=== PATIENT | male | born 1995 | race African-American/Black ===

== ENCOUNTER 2016-05-23 18:37 | Emergency (ER) | payer SELFPAY ==
[~2016-05-23] VITALS: Ht 188 cm; Wt 74.0 kg
[~2016-05-23 18:37] MED LIST: VENTAER INH
[2016-05-23 18:39] VITALS: BP 132/70; PULSE 74; RESP 14; TEMP 97.7; O2SAT 98
--- NOTE | 2016-05-23 19:48 | PD ---
HPI Chief Complaint: Pain: Acute or Chronic Time Seen by Provider: 19:45 Travel History International Travel<30 days: No Contact w/Intl Traveler<30days: No Traveled to known affect area: No History of Present Illness HPI 20-year-old black male presents to emergency Department with complaints of sore throat for the past week. He states that he has had subjective fever and chills , ear pain, sore throat, lips swelling and tenderness, cough, congestion, and a rash on his hands. He denies any shortness of breath or wheezing. No nausea vomiting. No abdominal pain or diarrhea. No dysuria or frequency. History Past Medical Histgory Medical History: Denies Significant Hx Tetanus Vaccination: < 5 Years Past Surgical History Surgical History: No Previous Surgery Social History Alcohol Use: Yes (SOCIALLY) Tobacco Use: Yes (1/2PPD) Allergies-Medications (Allergen,Severity, Reaction): Coded Allergies: No Known Allergies (Unverified , 04/13/16) Reported Meds & Prescriptions Reported Meds & Active Scripts Active No Active Prescriptions or Reported Medications Review of Systems Except as stated in HPI: all other systems reviewed are Neg Physical Exam Narrative GENERAL: Well-developed, well-nourished in no apparent distress. Nontoxic appearing. HEAD: Normocephalic, atraumatic. EYES: Pupils equal round and reactive. Extraocular motions intact. No scleral icterus. No injection or drainage. ENT: Nose clear. Throat with mild erythema, but no tonsillar hypertrophy or exudate. Uvula midline. Airway patent. No change in phonation. Handling his secretions well. NECK: Trachea midline. Supple, nontender, moves head freely. No central bony tenderness or spasm. CARDIOVASCULAR: Regular rate and rhythm without murmurs, gallops, or rubs. RESPIRATORY: Clear to auscultation. Breath sounds equal bilaterally. No wheezes , rales, or rhonchi. GASTROINTESTINAL: Abdomen soft, non-tender, nondistended. No hepato-splenomegaly , or palpable masses. No guarding. EXTREMITIES: No clubbing, cyanosis, or edema. No joint tenderness. Patient bites his fingernails. BACK: Nontender without deformity. No flank tenderness. NEUROLOGICAL: Awake, alert and oriented x 3 .Cranial nerves grossly intact. Motor and sensory grossly within normal limits. Normal speech. Skin: I see no rashes or lesions. The skin is intact. Data Data Last Documented VS Vital Signs Date Time Temp Pulse Resp B/P Pulse Ox O2 Delivery O2 Flow Rate FiO2 05/23/16 19:11 16 05/23/16 18:39 97.7 74 132/70 98 MDM Medical Screen Exam Complete: Yes Emergency Medical Condition: No Differential Diagnosis MDM: High Differential diagnoses: Strep throat, viral pharyngitis, mono, peritonsillar abscess Narrative Course A medical screening exam was performed: At the time of evaluation the presenting medical condition was determined not to be of an emergent nature. The patient was given the option of receiving additional care, but declined. Patient was given options for additional community resources from which to obtain care. The Patient Has Been advised to seek medical attention for their presenting complaint. The patient has been advised to return to the ER at any time if an emergent condition develops. During the patient encounter the patient was seen and his significant other was in the examination room at the same time. The patient voiced no complaints of his care. His significant other also did not voice any complaints of his care. They appear to be happy with his evaluation and treatment up until they were notified that he was having a medical screening exam. After they were informed that the patient had to continue on with a medical screening process they then stated to the screener they felt I might care was inappropriate. At no time during the history and exam did the patient or the significant other appear to be unhappy with my care. I suspect that this is in response to the medical screening exam. Unfortunately this is a common problem that we see one patient' s are given a medical screening exam. They didn't make a good experience sound inappropriate because they were screened and that they would be responsible for the bill. Primary Impression: Encounter for medical screening examination Scripts No Active Prescriptions or Reported Meds Condition: Murtaza Resendiz May 23, 2016 19:48
== END 2016-05-23 20:19 | disposition left against medical advice (07) ==
LOC: NEPB 18:37
DX: J02.9 Acute pharyngitis, unspecified (principal); F17.210 Nicotine dependence, cigarettes, uncomplicated
CPT/HCPCS: 99281

== ENCOUNTER 2017-08-27 09:37 | Emergency (ER) | payer MEDICAID ==
[~2017-08-27] VITALS: Ht 185.4 cm; Wt 75.0 kg
[2017-08-27 09:39] VITALS: BP 119/61; PULSE 109; RESP 18; TEMP 98; O2SAT 99
--- NOTE | 2017-08-27 10:07 | PD ---
HPI . Shortness of breath Chief Complaint: Respiratory Symptoms Time Seen by Provider: 09:49 Travel History International Travel<30 days: No Contact w/Intl Traveler<30days: No Traveled to known affect area: No History of Present Illness HPI This patient presents with chief complaint of shortness of breath. Onset was about 6 or 7 this morning. He rates the severity of his dyspnea at 10/10. Symptoms have been continuous since 6 or 7 this morning. He also reports some left-sided chest pain. He denies fever or sputum production. He states that he has a history of asthma. He has not been under the care of a doctor for the last couple of years and does not have anything at home to use for asthma. He does state that he has been here intermittently in the last 2 years for asthma attacks. [facility] Past Medical History Asthma: Yes Diminished Hearing: No Respiratory: Yes (ASTHMA) Social History Alcohol Use: Yes (occ) Tobacco Use: Yes Substance Use: Yes (marijuana) Allergies-Medications (Allergen,Severity, Reaction): Coded Allergies: No Known Allergies (Unverified , 04/13/16) Reported Meds & Prescriptions Reported Meds & Active Scripts Active No Active Prescriptions or Reported Medications Review of Systems Except as stated in HPI: all other systems reviewed are Neg Physical Exam Narrative GENERAL: Awake and alert. He is noted to be very tremulous. SKIN: warm/dry. HEAD: Normocephalic. Atraumatic. EYES: Pupils equal and round. No scleral icterus. No injection or drainage. ENT: No nasal bleeding or discharge. Mucous membranes pink and moist. NECK: Trachea midline. Full range of motion without pain.. CARDIOVASCULAR: Regular rate and rhythm. Sinus tachycardia at about 110. RESPIRATORY: No accessory muscle use. Clear to auscultation. Breath sounds equal bilaterally. Respiratory rate is 18 with oxygen saturation of 99% on room air GASTROINTESTINAL: Abdomen soft. Nontender. Bowel sounds present. Nondistended. MUSCULOSKELETAL: No obvious deformities. NEUROLOGICAL: Awake and alert. No obvious cranial nerve deficits. Motor grossly within normal limits. Normal speech. PSYCHIATRIC: Appropriate mood and affect; insight and judgment normal. Data Data Last Documented VS Vital Signs Date Time Temp Pulse Resp B/P (MAP) Pulse Ox O2 Delivery O2 Flow Rate FiO2 08/27/17 09:56 109 17 100 Room Air 08/27/17 09:39 98.0 119/61 (80) Orders Orders Arterial Blood Gas (Abg) (08/27/17 ) Lorazepam Inj (Ativan Inj) (08/27/17 10:30) Guaifen-Cod 200-20 Mg/10ml Liq (Robituss (08/27/17 10:30) Labs Laboratory Tests Test 08/27/17 10:09 Blood Gas Puncture Site RT RADIAL Blood Gas Patient Temperature 98.6 Blood Gas HCO3 21 mmol/L Blood Gas Base Excess -1.8 mmol/L Blood Gas Oxygen Saturation 93 % Arterial Blood pH 7.46 Arterial Blood Partial Pressure CO2 30 mmHg Arterial Blood Partial Pressure O2 109 mmHG Arterial Blood Oxygen Content 17.1 Vol % Arterial Blood Carboxyhemoglobin 4.6 % Arterial Blood Methemoglobin 0.7 % Blood Gas Hemoglobin 12.9 G/DL Oxygen Delivery Device ROOM AIR Blood Gas Inspired Oxygen 21 % MDM Medical Decision Making Medical Screen Exam Complete: Yes Emergency Medical Condition: Yes Differential Diagnosis Differential diagnosis of dyspnea includes but is not limited to congestive heart failure, pneumonia, wheezing, pneumothorax, pulmonary embolism Narrative Course This patient presents with a chief complaint of dyspnea. He seems to think that he is having an asthma attack. However, his lungs are clear with good air movement throughout. His respiratory rate is 18 with an oxygen saturation 99% on room air. He is very tremulous. I believe that he is having an anxiety attack. I am going to start by checking a blood gas. If the blood gas shows evidence of hypoventilation but good oxygenation, I will treat him with Ativan. The diagnosis of a PE is being considered. Further evaluation of that will depend upon the results of the blood gas as well as response to therapy. His blood gas is compatible with hyperventilation. I have ordered Ativan. He does have a persistent, dry cough so I have also ordered a dose of Robitussin- AC. He will be reassessed following this treatment. On recheck, his breathing is better. He continues to have a cough. His significant other reports that she knows what is wrong with him. She states that he needs to stop smoking. I have told her that I agree with her. I will discharge the patient with prescriptions for Robitussin-AC and an albuterol inhaler. He will be admonished to stop smoking. Diagnosis Primary Impression: Shortness of breath Additional Impressions: Cough Hyperventilation Additional Instructions: Stop smoking Med/Other Pt SpecificInfo: Prescription(s) given Scripts Promethazine-Codeine Liq (Promethazine-Codeine Liq) 6.25-10 Mg/5 Ml Syrp 10 ML PO Q4H Y for COUGH AND/OR COLD SYMPTOMS, #120 ML 0 Refills Prov: Margarita Alas MD 08/27/17 Albuterol 18 GM Inh (Ventolin Hfa 18 GM Inh) 90 Mcg/Act Aer 2 PUFF INH Q4-6H Y for SHORTNESS OF BREATH, #1 INHALER 0 Refills Prov: Margarita Alas MD 08/27/17 Disposition: 01 DISCHARGE HOME Condition: Stable Margarita Alas MD August 27, 2017 10:07
[2017-08-27] MEDS ORDERED: guaiFENesin/CODEINE SYRUP 200 MG/20 MG/10 ML CUP PO ONE (10:30)
[2017-08-27] MEDS ORDERED: LORazepam 2 MG/ML VIAL IM ONE (10:30)
[2017-08-27] MEDS ORDERED: RESP: ALBUTEROL 1.25 MG/3 ML NEB (SCH) NEB ONE (11:15)
[2017-08-27] MEDS ORDERED: VENTAER INH (11:15)
[2017-08-27] MEDS ORDERED: PROM6.256 PO (11:15)
== END 2017-08-27 11:49 | disposition home or self-care (01) ==
LOC: NEPD 09:37
DX: R06.02 Shortness of breath (principal); R06.4 Hyperventilation; F12.90 Cannabis use, unspecified, uncomplicated; Z72.0 Tobacco use
CPT/HCPCS: 36600; 82805; 94664; 96372; 99283; J2060; J7613

== ENCOUNTER 2017-09-06 15:41 | Emergency (ER) | payer MEDICAID ==
[~2017-09-06 15:41] MED LIST changes: +PROM6.256 PO
== END 2017-09-06 16:30 | disposition left against medical advice (07) ==
LOC: NED 15:41
DX: R07.9 Chest pain, unspecified (principal)
CPT/HCPCS: 99281